=== PATIENT | female | born 1980 | race Hispanic/Latino ===

== ENCOUNTER 2022-04-23 22:45 | Emergency (ER) | payer OTHER ==
[2022-04-23] MEDS ORDERED: METOCLOPRAMIDE 10 MG/2mL INJ ONE (23:24)
[2022-04-23] MEDS ORDERED: KETOROLAC 30 MG/ML INJ ONE (23:25)
[2022-04-23] MEDS ORDERED: DIPHENHYDRAMINE 50 MG/ML VIAL ONE (23:25)
[2022-04-23] MEDS ORDERED: NA CHLORIDE 0.9% 1,000 ML ONE (23:25)
[2022-04-23 23:53] LABS: Urine Blood Negative (Negative); Urine Glucose Negative (Negative); Urine Protein 2+ (Negative); Urine Specific Gravity >=1.030 (1.005-1.030); Urine pH 5.5 (5.0-7.0)
[2022-04-23 23:57] LABS: Absolute Lymphocytes (CBC) 1.5 K/uL (0.7-4.9); Hematocrit 36.8 % (36.0-45.0); Lymphocytes % 18.3 % (15.3-44.8); MCV 80.5 fL (80-100); MPV 7.6 fL (7.6-11.3); RBC Red Blood Cell Count 4.57 M/uL (3.86-4.86)
[2022-04-23] MEDS ORDERED: AMLODIPINE 10 MG TAB ONE (23:58)
[2022-04-23] MEDS ORDERED: LABETALOL 20 MG/4ML SYRINGE IV ONE (23:59)
[2022-04-24 00:02] LABS: Protime INR 1.04
[2022-04-24 00:19] LABS: ALT/SGPT 18 U/L (12-78); AST/SGOT 15 U/L (15-37); Albumin 3.3 g/dL (3.4-5.0); Alkaline Phosphatase 84 U/L (45-117); BUN Blood Urea Nitrogen 12 mg/dL (7-18); Bicarbonate 27 mmol/L (21-32); Bilirubin Total 0.4 mg/dL (0.2-1.0); Glomerular Filtration Rate 86 ml/min (=/>90); Glucose Level 127 mg/dL (74-106); Magnesium 2.2 mg/dL (1.8-2.4); NT PRO-BNP 189 pg/mL (<125); Potassium 3.3 mmol/L (3.5-5.1); Sodium Level 138 mmol/L (136-145); Troponin High Sensitivity 8.3 pg/mL (<58.9)
[2022-04-24 00:29] LABS: Bilirubin Direct < 0.1 mg/dL (0-0.2)
[2022-04-24 00:35] LABS: Urine Specific Gravity/Preg >1.030 (1.005-1.030)
[2022-04-24] MEDS ORDERED: POTASSIUM 25 MEQ EFFERV TAB ONE (01:32)
--- NOTE | 2022-04-24 01:48 | ER ---
Nurse's Notes [facility] Name: Lucinda Strong Age: 42 yrs Sex: Female : 1980 Arrival Date: 04/23/2022 Time: 22:49 Bed 4 Private MD: Diagnosis: Essential (primary) hypertension;Migraine with aura, not intractable, without status migrainosus;Hypokalemia Presentation: 04/23 22:55 Chief complaint: Patient states: Pt reports headache, vomiting, fever since 0800 this kb3 morning. Coronavirus screen: Vaccine status: Patient reports receiving the 2nd dose of the covid vaccine. Client denies travel out of the [place] in the last 14 days. Ebola Screen: Patient negative for fever greater than or equal to 101.5 degrees Fahrenheit, and additional compatible Ebola Virus Disease symptoms Patient denies exposure to infectious person. Patient denies travel to an Ebola-affected area in the 21 days before illness onset. Initial Sepsis Screen: Does the patient meet any 2 criteria? No. Patient's initial sepsis screen is negative. Does the patient have a suspected source of infection? No. Patient's initial sepsis screen is negative. Risk Assessment: Do you want to hurt yourself or someone else? Patient reports no desire to harm self or others. Onset of symptoms was April 23, 2022 at 08:00. 22:55 Method Of Arrival: Ambulatory 3 22:55 Acuity: JAE 3 kb3 Triage Assessment: 22:58 Headache History: The patient has had previous headaches. General: Appears in no kb3 apparent distress. Behavior is calm, cooperative, Texting in triage. Pain: Complains of pain in left latter-day Pain does not radiate. Pain currently is 7 out of 10 on a pain scale. Quality of pain is described as aching, pressure, Pain began 1 day ago. Pain: Also complains of nausea. Neuro: Reports headache in left latter-day. 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 - Social history:: Smoking status: Patient denies any tobacco usage or history of. - Family history:: not pertinent. Screenin/11 00:10 Abuse screen: Denies threats or abuse. Denies injuries from another. Nutritional as6 screening: No deficits noted. Tuberculosis screening: No symptoms or risk factors identified. Fall Risk None identified. Assessment: 04/23 23:40 General: Appears uncomfortable, Behavior is calm, cooperative. Pain: Complains of pain as6 in head. Neuro: Reports headache photophobia. GI: Reports nausea. 04/24 01:39 Reassessment: Patient states symptoms have improved. as6 Vital Signs: 04/23 22:55 BP 167 / 111; Pulse 97; Resp 20; Temp 98.8; Pulse Ox 100% ; Weight 72.57 kg; Height 5 kb3 ft. 3 in. (160.02 cm); Pain 12/21; 04/24 00:05 BP 144 / 107; Pulse 85; Resp 18 S; Pulse Ox 100% on R/A; as6 00:43 BP 114 / 88; as6 01:40 BP 123 / 84; Pulse 102; Resp 17 S; Pulse Ox 99% on R/A; as6 04/23 22:55 Body Mass Index 28.34 (72.57 kg, 160.02 cm) kb3 [place] Coma Score: 04/23 23:52 Eye Response: spontaneous(4). Verbal Response: oriented(5). Motor Response: obeys jhony commands(6). Total: 15. ED Course: 22:49 Patient arrived in ED. ja2 22:58 Triage completed. kb3 22:58 Arm band placed on right wrist. kb3 23:05 Steve Brar MD is Attending Physician. jhony 23:14 Adebayo Pedro, KO is Primary Nurse. as6 23:34 XRAY Chest (1 view) In Process Unspecified. EDMS 23:53 Inserted saline lock: 20 gauge in right forearm, using aseptic technique. Blood as6 collected. 04/24 00:11 Bed in low position. Call light in reach. Side rails up X2. as6 01:08 CT Head Brain wo Cont In Process Unspecified. EDMS 01:47 Morris Colon MD is Referral Physician. jhony 02:07 No provider procedures requiring assistance completed. IV discontinued, intact, as6 bleeding controlled, No redness/swelling at site. Pressure dressing applied. Administered Medications: 04/23 23:54 Drug: NS 0.9% 1000 ml Route: IV; Rate: 125 ml/hr; Site: right forearm; as6 04/24 02:07 Follow up: Response: No adverse reaction; IV Status: Completed infusion; IV Intake: as6 1000ml 04/23 23:54 Drug: Ketorolac 30 mg Route: IVP; Site: right forearm; as6 04/24 02:07 Follow up: Response: No adverse reaction as6 04/23 23:54 Drug: Reglan (metoCLOPramide) 10 mg Route: IVP; Site: right forearm; as6 04/24 02:07 Follow up: Response: No adverse reaction as6 04/23 23:54 Drug: Benadryl (diphenhydrAMINE) 37.5 mg Route: IVP; Site: right forearm; as6 04/24 02:07 Follow up: Response: No adverse reaction as6 00:01 Drug: Norvasc (amlodipine) 10 mg Route: PO; as6 02:07 Follow up: Response: No adverse reaction as6 00:01 Drug: Labetalol 10 mg Route: IV; Rate: per protocol; Site: right forearm; as6 02:06 Follow up: Response: No adverse reaction; IV Status: Completed infusion; IV Intake: 2ml as6 00:42 Not Given (Other Intervention Used): Labetalol 10 mg IV at per protocol once as6 01:39 Drug: Potassium Effervescent Tablet 25 mEq Route: PO; as6 02:06 Follow up: Response: No adverse reaction as6 Medication: 02:08 VIS not applicable for this client. as6 Intake: 02:06 IV: 2ml; Total: 2ml. as6 02:07 IV: 1000ml; Total: 1002ml. as6 Outcome: 01:47 Discharge ordered by . jhony 02:08 Discharged to home ambulatory. as6 02:08 Condition: stable 02:08 Discharge instructions given to patient, Instructed on discharge instructions, follow up and referral plans. medication usage, Demonstrated understanding of instructions, follow-up care, medications, Prescriptions given X 3. 02:08 Patient left the ED. as6 Signatures: Dispatcher [employer] Steve David MD MD cha Alexander, Jessica ja2 Slawson, Ashby, RN RN as6 Criss Gonsalez, RN RN kb3
--- NOTE | 2022-04-24 01:49 | EDPHYS ---
Physician Documentation [facility] Name: Lucinda Strong Age: 42 yrs Sex: Female : 1980 Arrival Date: 04/23/2022 Time: 22:49 Bed 4 Private MD: ED Physician Steve Brar HPI: 04/23 23:40 This 42 yrs old Female presents to ER via Ambulatory with complaints of jhony Headache, Vomiting. 23:40 The patient complains of pain to the top of head, forehead, left frontal area, left jhony side of the back of head, left occipital area, left base of the skull, right frontal area, right side of the back of head, right occipital area and right base of the skull. The patient describes the headache as constant. Onset: The symptoms/episode began/occurred 2 day(s) ago. Associated signs and symptoms: The patient has no apparent associated signs or symptoms. Severity of symptoms: At its worst the pain was mild, in the emergency department the pain is unchanged. Headache History: The patient has had previous headaches and this one is similar to previous episodes. The symptoms are alleviated by nothing. the symptoms are aggravated by nothing. The patient has experienced similar episodes in the past, several times. 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 - Social history:: Smoking status: Patient denies any tobacco usage or history of. - Family history:: not pertinent. ROS: 23:40 Constitutional: Negative for fever, chills, and weight loss, Eyes: Negative for injury, jhony pain, redness, and discharge, ENT: Negative for injury, pain, and discharge, Neck: Negative for injury, pain, and swelling, Cardiovascular: Negative for chest pain, palpitations, and edema, Respiratory: Negative for shortness of breath, cough, wheezing, and pleuritic chest pain, Back: Negative for injury and pain, : Negative for injury, bleeding, discharge, and swelling, MS/Extremity: Negative for injury and deformity, Skin: Negative for injury, rash, and discoloration, Psych: Negative for depression, anxiety, suicide ideation, homicidal ideation, and hallucinations, Allergy/Immunology: Negative for hives, rash, and allergies, Endocrine: Negative for neck swelling, polydipsia, polyuria, polyphagia, and marked weight changes, Hematologic/Lymphatic: Negative for swollen nodes, abnormal bleeding, and unusual bruising. 23:40 Abdomen/GI: Positive for nausea and vomiting. Exam: 23:40 Constitutional: This is a well developed, well nourished patient who is awake, alert, jhony and in no acute distress. Head/Face: Normocephalic, atraumatic. Eyes: Pupils equal round and reactive to light, extra-ocular motions intact. Lids and lashes normal. Conjunctiva and sclera are non-icteric and not injected. Cornea within normal limits. Periorbital areas with no swelling, redness, or edema. ENT: Nares patent. No nasal discharge, no septal abnormalities noted. Tympanic membranes are normal and external auditory canals are clear. Oropharynx with no redness, swelling, or masses, exudates, or evidence of obstruction, uvula midline. Mucous membranes moist. Neck: Trachea midline, no thyromegaly or masses palpated, and no cervical lymphadenopathy. Supple, full range of motion without nuchal rigidity, or vertebral point tenderness. No Meningismus. Chest/axilla: Normal chest wall appearance and motion. Nontender with no deformity. No lesions are appreciated. Cardiovascular: Regular rate and rhythm with a normal S1 and S2. No gallops, murmurs, or rubs. Normal PMI, no JVD. No pulse deficits. Respiratory: Lungs have equal breath sounds bilaterally, clear to auscultation and percussion. No rales, rhonchi or wheezes noted. No increased work of breathing, no retractions or nasal flaring. Abdomen/GI: Soft, non-tender, with normal bowel sounds. No distension or tympany. No guarding or rebound. No evidence of tenderness throughout. Back: No spinal tenderness. No costovertebral tenderness. Full range of motion. Skin: Warm, dry with normal turgor. Normal color with no rashes, no lesions, and no evidence of cellulitis. MS/ Extremity: Pulses equal, no cyanosis. Neurovascular intact. Full, normal range of motion. Neuro: Awake and alert, GCS 15, oriented to person, place, time, and situation. Cranial nerves II-XII grossly intact. Motor strength 5/5 in all extremities. Sensory grossly intact. Cerebellar exam normal. Normal gait. Psych: Awake, alert, with orientation to person, place and time. Behavior, mood, and affect are within normal limits. 23:40 ECG was reviewed by the Attending Physician. Vital Signs: 22:55 BP 167 / 111; Pulse 97; Resp 20; Temp 98.8; Pulse Ox 100% ; Weight 72.57 kg; Height 5 kb3 ft. 3 in. (160.02 cm); Pain 12/21; 04/24 00:05 BP 144 / 107; Pulse 85; Resp 18 S; Pulse Ox 100% on R/A; as6 00:43 BP 114 / 88; as6 01:40 BP 123 / 84; Pulse 102; Resp 17 S; Pulse Ox 99% on R/A; as6 04/23 22:55 Body Mass Index 28.34 (72.57 kg, 160.02 cm) kb3 [place] Coma Score: 04/23 23:52 Eye Response: spontaneous(4). Verbal Response: oriented(5). Motor Response: obeys jhony commands(6). Total: 15. MDM: 23:05 Patient medically screened. jhony 23:52 Differential diagnosis: hypertensive headache, hyponatremia, subarachnoid bleed, jhony temporal arteritis, tension headache, trigeminal neuralgia, vasomotor headache. Data reviewed: vital signs, nurses notes, lab test result(s), EKG, radiologic studies, CT scan, plain films. Data interpreted: media monitor: rate is 97 beats/min, rhythm is regular, Pulse oximetry: on room air is 100 %. Test interpretation: by ED physician or midlevel provider: ECG, plain radiologic studies. Counseling: I had a detailed discussion with the patient and/or guardian regarding: the historical points, exam findings, and any diagnostic results supporting the discharge/admit diagnosis, lab results, radiology results, the need for outpatient follow up, for definitive care, a family practitioner, a neurologist. 04/23 23:08 Order name: Basic Metabolic Panel; Complete Time: 01:05 jhony 04/23 23:08 Order name: CBC with Diff; Complete Time: :14 [facility] 04/23 23:08 Order name: LFT's; Complete Time: 01:14 [facility] 04/23 23:08 Order name: Magnesium; Complete Time: :14 [facility] 04/23 23:08 Order name: NT PRO-BNP; Complete Time: 01:14 [facility] 04/23 23:08 Order name: PT-INR; Complete Time: 01:14 [facility] 04/23 23:08 Order name: Troponin HS; Complete Time: 01:14 [facility] 04/23 23:08 Order name: XRAY Chest (1 view) [facility] 04/23 23:08 Order name: CT Head Brain wo Cont [facility] 04/23 23:53 Order name: Urine --Ancillary (enter results); Complete Time: :14 [facility] 04/23 23:54 Order name: Urine Dipstick-Ancillary; Complete Time: :14 [facility] 04/23 23:08 Order name: EKG; Complete Time: 23:09 [facility] 04/23 23:08 Order name: Cardiac monitoring; Complete Time: 23:54 [facility] 04/23 23:08 Order name: EKG - Nurse/Tech; Complete Time: 23:54 [facility] 04/23 23:08 Order name: IV Saline Lock; Complete Time: 23:54 [facility] 04/23 23:08 Order name: Labs collected and sent; Complete Time: 23:54 [facility] 04/23 23:08 Order name: O2 Per Protocol; Complete Time: 23:54 [facility] 04/23 23:08 Order name: O2 Sat Monitoring; Complete Time: 23:54 [facility] 04/23 23:08 Order name: Urine Dipstick-Ancillary (obtain specimen); Complete Time: 23:54 [facility] 04/23 23:08 Order name: Oxygen; Complete Time: 23:54 [facility] EC:40 Rate is 60 beats/min. QRS [place] is Normal. [place] interval is normal. QRS interval is jhony normal. QT interval is normal. No Q waves. T waves are Normal. No ST changes noted. Clinical impression: Normal ECG and No evidence of ischemia. Interpreted by me. Reviewed by me. Administered Medications: 23:54 Drug: NS 0.9% 1000 ml Route: IV; Rate: 125 ml/hr; Site: right forearm; as04/24 02:07 Follow up: Response: No adverse reaction; IV Status: Completed infusion; IV Intake: as6 1000ml 11/10 23:54 Drug: Ketorolac 30 mg Route: IVP; Site: right forearm; as6 04/24 02:07 Follow up: Response: No adverse reaction as6 04/23 23:54 Drug: Reglan (metoCLOPramide) 10 mg Route: IVP; Site: right forearm; as6 04/24 02:07 Follow up: Response: No adverse reaction as6 04/23 23:54 Drug: Benadryl (diphenhydrAMINE) 37.5 mg Route: IVP; Site: right forearm; as6 04/24 02:07 Follow up: Response: No adverse reaction as6 00:01 Drug: Norvasc (amlodipine) 10 mg Route: PO; as6 02:07 Follow up: Response: No adverse reaction as6 00:01 Drug: Labetalol 10 mg Route: IV; Rate: per protocol; Site: right forearm; as6 02:06 Follow up: Response: No adverse reaction; IV Status: Completed infusion; IV Intake: 2ml as6 00:42 Not Given (Other Intervention Used): Labetalol 10 mg IV at per protocol once as6 01:39 Drug: Potassium Effervescent Tablet 25 mEq Route: PO; as6 02:06 Follow up: Response: No adverse reaction as6 Disposition Summary: 04/24/22 01:47 Discharge Ordered Location: Home jhony Problem: new jhony Symptoms: have improved jhony Condition: Stable jhony Diagnosis - Essential (primary) hypertension jhony - Migraine with aura, not intractable, without status migrainosus jhony - Hypokalemia jhony Followup: jhony - With: Private Physician - When: 2 - 3 days - Reason: Recheck today's complaints, Continuance of care, Re-evaluation by your physician Followup: jhony - With: - When: 2 - 3 days - Reason: Recheck today's complaints, Continuance of care, Re-evaluation by your physician Discharge Instructions: - Discharge Summary Sheet jhony - Migraine Headache jhony - Hypertension, Adult jhony - Hypertension, Adult, Pigu-ns-Dyni jhony - How to Take Your Blood Pressure, [id number] jhony - Migraine Headache, [id number] jhony - Managing Your Hypertension jhony Forms: - Medication Reconciliation Form jhony - Thank You Letter jhony - Antibiotic Education jhony - Prescription Opioid Use jhony Prescriptions: - Fioricet with Codeine [id number] mg Oral capsule - take 1 capsule by ORAL route every 4 hours as needed not to exceed 6 capsules jhony per 24hrs; 15 capsule; Refills: 0, Product Selection Permitted - Zofran 4 mg Oral Tablet - take 1 tablet by ORAL route every 12 hours As needed; 20 tablet; Refills: 0, jhony Product Selection Permitted - Norvasc 5 mg Oral Tablet - take 1 tablet by ORAL route once daily; 20 tablet; Refills: 0, Product jhony Selection Permitted Signatures: Dispatcher [employer] Steve David MD MD cha Attema, Lee, MEDICAL RECORDS SECRETARY-C MEDICAL RECORDS SECRETARY-Cla1 Adebayo Pedro, RN RN as6 Criss Gonsalez RN RN kb3
[2022-04-24 02:47] VITALS: TEMP 98.8
[2022-04-24 02:54] VITALS: BP 123/84; O2SAT 99
--- NOTE | 2022-04-24 10:32 | RAD REPORT ---
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 FINDINGS: Single view of the chest was obtained portable. No prior films are available for compariso n. The cardiomediastinal silhouette demonstrate to be unremarkable. The heart is not enlarged. The th oracic aorta is unremarkable. The pulmonary vasculature is normal distribution. Costophrenic angles a re sharp. No areas of consolidation or masses are seen. The rest of the soft tissue and bony stru ctures demonstrate to be unremarkable. IMPRESSION: No acute cardiopulmonary disease seen. Electronically signed by: Ramy Zhao MD 04/23/2022 11:49 PM COMMERCIAL FISHER Due to temporary technical issues with the PACS/Fluency reporting system, reports are being signed by the in house radiologists without review as a courtesy to insure prompt reporting. The interpreting radiologist is fully responsible for the content of the report.
--- NOTE | 2022-04-24 10:57 | RAD REPORT ---
EXAM DESCRIPTION: Head Brain Wo Cont CLINICAL HISTORY: 42 years Female Headache, tension-type COMPARISON: None TECHNIQUE: Contiguous axial images of the brain were obtained without the administration of intraven ous contrast.This exam was performed according to our departmental dose-optimization program which in cludes use of Automated Exposure Control, adjustment of the mA and/or kV according to patient size an d/or use of iterative reconstruction technique. DLP: 860 mGy*cm FINDINGS: Brain: No acute intracranial hemorrhage. No extra-axial collection. No mass effect or monisha iation. Ventricles: Within normal limits in size. Globes and orbits: No acute abnormality. Bones: No acute osseous finding Paranasal sinuses: Paranasal sinuses are clear. Mastoid air cells: Well pneumatized. Soft tissues: Within normal limits IMPRESSION: No acute intracranial abnormality. Electronically signed by: Primo Erazo DO 04/24/2022 1:15 AM STEEL HANGER Due to temporary technical issues with the PACS/Fluency reporting system, reports are being signed by the in house radiologists without review as a courtesy to insure prompt reporting. The interpreting radiologist is fully responsible for the content of the report.
--- NOTE | 2022-04-24 15:56 | EKG ---
Test Date: 2022-04-23 Test Time: 23:34:19 Rn Acute Dialysis: MEASUREMENT RESULTS: Intervals: Rate: 90 WI: 128 QRSD: 88 QT: 384 QTc: 469 Souris: P: 65 WI: 128 QRS: 76 T: 73 INTERPRETIVE STATEMENTS: Normal sinus rhythm Normal ECG No previous ECG available for comparison Electronically Signed On 04-24-22 15:55:07 RELEASE MANAGER by Danny Parra
== END 2022-04-24 02:08 | disposition home or self-care (01) ==
LOC: ER 22:45
DX: G43.109 Migraine with aura, not intractable, without status migrainosus (principal); E87.6 Hypokalemia; I10 Essential (primary) hypertension
CPT/HCPCS: 96365; 93005; 85025; 80048; 36415; 83735; 81025; 85610; 80076; 81003; 84484; 83880; 70450; 71045; 96375; 99284; 96366; J2765; J1200; J7030